=== PATIENT | female | born 1955 | race Two or more races ===

== ENCOUNTER 2016-12-08 07:23 | Day surgery (SDC) | payer MEDICARE, OTHER ==
[~2016-12-08] VITALS: Ht 157.5 cm; Wt 69.0 kg
[2016-12-08 08:56] VITALS: Ht 157.5 cm; Wt 69.0 kg
[2016-12-08 09:00] VITALS: BP 138/65; PULSE 61; RESP 20
[2016-12-08] MEDS ORDERED: ATOR10TA65 PO (09:01)
[2016-12-08] MEDS ORDERED: ALEN10TA18 PO (09:01)
[2016-12-08 10:15] VITALS: BP 117/54; PULSE 62; RESP 21
--- NOTE | 2016-12-08 17:11 | GILP ---
DATE OF PROCEDURE: 12/08/2016 PROCEDURE: Colonoscopy. PREOPERATIVE DIAGNOSIS: Patient presenting with a history of no significant gastrointestinal proble ms. This is a screening colonoscopy, rule out colon polyps. POSTOPERATIVE DIAGNOSIS: Minimal external hemorrhoids. No polyps noted. DESCRIPTION OF PROCEDURE: After the informed written consent was obtained, the patient was asked to lie on the left lateral side. Intravenous anesthesia was given by the anesthesiologist, Dr. Manav tilley. When the patient became somnolent, the Olympus video colonoscope was introduced into the rectum and scope was advanced all the way to the cecum. Entire colon was examined thoroughly which showed evidence of no polyps, no carcinoma or any other abnormality. Scope at this time was withdrawn fro m the cecum. Careful evaluation was carried out. On the way out, no additional abnormalities detec royce. Retroflexion was performed. Some skin tags were noted at the anus. When the scope was withdr awn, minimal degree of small sized external hemorrhoids were noted and the procedure was terminated. PLAN: Recommend high fiber diet and recommend colonoscopy in 10 years. Dictated By: KYLEIGH ANGUIANO/AZEB Conf#: [id number] DID#: [id number] CC: KYLEIGH SALDANA MD; SHEILA MURDOCK;*[facility]*
== END 2016-12-08 10:13 | disposition home or self-care (01) ==
LOC: GIL 07:23
PROVIDERS: ATTEND Internal Medicine Gastroenterology
DX: Z12.11 Encounter for screening for malignant neoplasm of colon (principal); K64.4 Residual hemorrhoidal skin tags; E78.5 Hyperlipidemia, unspecified